=== PATIENT | female | born 1980 | race Caucasian/White ===

== ENCOUNTER 2023-11-27 07:58 | Day surgery (SDC) | payer OTHER, SELFPAY ==
[2023-11-27] VITALS (9 sets, daily range): BP systolic 125–139; BP diastolic 77–99; PULSE 58–89; RESP 16; TEMP 36.6–36.7; O2SAT 95–98; BMI 40.0
[2023-11-27] MEDS: LACTATED RINGERS 1000 ML 1,000 ML 100 ML IV ×2 (07:45→10:18)
--- OUTSIDE RECORDS SUMMARY | 2023-11-27 08:02 | XMS_ITS | Data Portability ---
Author Organization [place] [facility] [place] [facility] Address [address] [place] [address] [address] [place] [address] Care Team Providers Care Nutritional Services Cook Name Role Phone GIA MITCHELL Referring Provider RAUL GRIMALDO Primary Care Provider Assessment Encounter Date Assessment Date Assessment LastModified by Organization Details LastModified Time 08/17/2022 08/17/2022 Today I spent a considerable amount of time discussing the patients past medical and personal history, as well as performing a physical examination all of which is documented in it's entirety in the electronic health record. I reviewed the pathophysiology of the disorder, potential contributing and risk factors as well as treatment options to address their complaints. I did not recommend advanced imaging with CT. Today no imaging was obtained. From a treatment perspective I recommended a self management treatment approach. Treatment begins with home self management designed to rest the muscles of mastication and reduce inflammation in the temporomandibular joints. This includes heat and ice compresses, eating a soft food or pain-free diet, bilateral chewing identifying and decreasing daytime muscle tension and modification of their sleep position. Beyond self management I've recommended rehabilitation with physical therapy and neurology. The goal of treatment is to improve pain, function and focus on long-term self-management strategies. I believe that by following these treatment recommendations there is a good prognosis for reduction of symptoms. History was obtained from the patient. The patient has 5 diagnoses they would like to address. This case is moderate complexity because of multiple diagnoses with chronic symptoms. Data reviewed included: no records were available today. Discussion with pain team members before visit was not necessary. Risk of complications include progressive disease/symptoms. Today time spent may have included a review of past records, history taking, review of diagnoses, contributing factors, treatment plan, diagnostic testing, prognosis, expectations, risks and complications of treatment/no treatment, discussions with other providers and completing documentation was 60 minutes. Not available 08/17/2022 15:55:33 Plan of Treatment Reminders Order Date Submit Date Provider Last Modified By Organization Details Last Modified Time Details Appointments None record ed. Lab None record ed. Referral None record ed. Procedures None record ed. Surgeries None record ed. Imaging None record ed. Medication Orders None record ed. Patient TargetsNo targets recorded. Patient Instructions Encounter Date Encounter Id Patient Instructions Last Modified By Organization Details Last Modified Time 08/17/2022 [id number] 1. instructed in self cares 2. PT evaluation + 3 follow ups (more if needed): muscle relaxation (jaw and neck), instruct in proper jaw mechanics to reduce R TMJ clicking 3. 1/2 hr w/Dr. French in 6 weeks to monitor symptoms. Pt. gets relief from wearing ortho retainers overnight and sometimes during day 4. Dr. Stanford evaluation: migraines with aura 5. request panorex from french instructor. Review with patient at follow up Not available 08/17/2022 15:44:57 Reason for Referral None Reported. Results Created Date Observation Date Name Description Value Unit Range Abnormal Flag LastModifiedBy Organization Detail LastModifiedTime 08/18/19 23 08/17/2022 XR, ortho panto gram No observ ation record ed. Not Available 08/17/2022 18:30:36 Result Notes None recorded. 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 Procedures Surgical History Date Name Laterality Status Provider Name and Address Organization Details Recorded Time 07/24/19 22 Carpal Tunnel Surgery completed Alisa murillo [facility] 08/17/2022 14:36:46 11/05/19 09 Caesarean Section completed Alisa murillo [facility] 08/17/2022 14:36:46 01/07/20 04 Caesarean Section completed Alisa murillo [facility] 08/17/2022 14:36:46 11/02/18 96 [place] Teeth Extraction completed Alisa murillo [facility] 08/17/2022 14:36:46 05/21/18 82 Tonsillectomy completed Alisa murillo [facility] 08/17/2022 14:36:46 Production Department Supervisor Surgery completed Alisa murillo [facility] 08/17/2022 14:36:46 ENT/Sinus Surgery completed Alisa murillo [facility] 08/17/2022 14:36:46 Imaging Results Imaging Date Name Status LastModified by Organization Details LastModified Time 08/17/2022 XR, orthopantogram completed Inform ation not available 08/17/2022 18:30:36 Procedure Notes None recorded. Medical Equipment None Reported. Allergies Allergen ID Allergen Name Allergen Category Reaction Reaction Severity Criticality Documentation Date Start Date Code Code System Note Provider Name and Address Organization Details Recorded Time 16569 adhesive tape environme nt,medica tion hives severe Not available 08/17/2022 Alisa murillo [facility] 14:36:09 [address]253 [employer] Pollen medicatio n respirato ry distress moderate Not available 08/17/2022 Alisa Eagle [facility] [place] [facility] 3 14:36:09 Medications Name Sig Start Date Stop Date Status Note LastModified by Organization Details LastModified Time Singulair 10 mg tablet 1 tablet every day by oral route. active Not Available Not Available No t Available Prozac 40 mg capsule 1 capsule every day by oral route. active Not Available Not Available No t Available Synthroid 125 mcg tablet Take 1 tablet every day by oral route. 08/17 completed Not Available Not Available Not Available dextroamphe tamine-amph etamine 10 mg tablet active Not Available Not Available No t Available gabapentin 400 mg capsule 3 capsules every day by oral route. active Not Available Not Available No t Available phentermine 37.5 mg tablet TAKE 1 AND 1/2 TABLETS BY MOUTH DAILY 08/17 completed Not Available Not Available Not Available acetaminoph en 500 mg tablet 2 tablets twice a day by oral route. active Not Available Not Available No t Available spironolact one 25 mg tablet 08/17 completed Not Available Not Available Not Available Imitrex 50 mg tablet 1 tablet as needed by oral route. active Not Available Not Available No t Available gentamicin 0.3 % eye drops INSTILL 1-2 DROPS INTO AFFECTED EYES EVERY 4 HOURS FOR 7 DAYS DIRECTED 08/17 completed Not Available Not Available Not Available Zaynab 180 mg tablet 1 tablet every day by oral route. 1997 active Not Available Not Available Not Avai lable ursodiol 300 mg capsule TAKE 2 CAPSULES BY MOUTH DAILY 08/17 completed Not Available Not Available Not Available estradiol 2 mg tablet 1 tablet every day by oral route. active Not Available Not Available No t Available doxycycline hyclate 100 mg tablet 08/17 completed Not Available Not Available Not Available Ventolin HFA 90 mcg/actuati on aerosol inhaler 2 puffs as needed by inhalatio n route. active Not Available Not Available No t Available Adderall (10mg) 2 times a day 2020 active Not Available Not Available Not Avai lable Vitamin D3 125 mcg (5,000 unit) tablet 1 tablet every day by oral route. active Not Available Not Available No t Available Paxlovid 300 mg (150 mg x 2)-100 mg tablets in a dose pack TK 2 NIRMATREL VIR TS AND 1 RITONAVIR T TOGETHER PO BID FOR 5 DAYS EVERY DAY UNTIL GONE 08/17 completed Not Available Not Available Not Available Vitals Date Recorded Body height Body mass index (BMI) Body weight Heart rate Systolic blood pressure Diastolic blood pressure Provider Name and Address Organization Details Last Updated DateTime 160.02 cm 39.9 kg/m2 073164. 28 g 67 /min 128 mm[Hg] 93 mm[Hg] Alisa KELLOGG [facility] 14:52:06 Social History Question Answer Notes LastModified by Organizat ion Details LastModified Time Tobacco Smoking Status Current Some Day Smoker Alisa murillo [facility] 08/17/2022 14:36:40 What Is Your Level Of Alcohol Consumption? Occasional [email or web address] Information not available 08/17/2022 What Is Your Level Of Caffeine Consumption? Moderate [email or web address] Information not available 08/17/2022 Are You Currently Employed? Yes [email or web address] Information not available 08/17/2022 What Type Of Diet Are You Following? REGULAR [email or web address] Information not available 08/17/2022 Do You Reside In Or Have You Traveled To An Area Where Ebola Virus Transmission Is Active? No [email or web address] Information not available 08/17/2022 What Is The Highest Grade Or Level Of School You Have Completed Or The Highest Degree You Have Received? 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 2 [email or web address] Information not available 08/17/2022 What Is Your Relationship Status? [email or web address] Information not available 08/17/2022 Do You Feel Stressed (tense, Restless, Nervous, Or Anxious, Or Unable To Sleep At Night)? [id number] [email or web address] Information not available 08/17/2022 Do You Use Any Illicit Or Recreational Drugs? No [email or web address] Information not available 08/17/2022 How Many Years Have You Smoked Tobacco? 25 [email or web address] Information not available 08/17/2022 Sex: Female Functional Status Question Answer Note LastModified by Organizat ion Details LastModified Time What is your exercise level? Occasional [email or web address] Information not available 08/17/2022 Mental Status None recorded. Family History Relationship Description Onset Age of this Age Resolved Age Notes Mother Headache 16 Mother Arthritis 62 Mother Diabetes mellitus 67 Father Heart disease 70 Father Diabetes mellitus 58 Medical History Condition Response Allergies/Hayfever Y Anxiety Disorder Y Muscle, Joint, or Bone Problems Y Post traumatic stress disorder (PTSD) Y Head Trauma/Injury Y Migraines Y Thyroid Problems Y Depression Y Asthma Y Neuropathy Y Headaches Y Gynecological HistoryNo gynecological history recorded. Obstetrics History GPAL:G 0 P 0 0 0 0 Immunizations Vaccine Type Date Status Provider Name and Address Organization Details Recorded Time SARS-COV-2 (COVID-19) vaccine, UNSPECIFIED 02/18/2022 completed [place] He [facility] 08/17/2022 14:36:52 pneumococcal, unspecified formulation 07/21/2022 [place] Gould [facility] 08/17/2022 14:36:52 Influenza, split virus, trivalent, preservative 02/18/2022 completed [place] He [facility] 08/17/2022 14:36:52 Past Encounters Encounter ID Performer Location Encounter Start Date Encounter Closed Date Diagnosis/Indication Diagnosis SNOMED-CT Code [id number] Nora French, REGULO [address] 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 8041103727827 9105 Tension-type headache 39 1647026 Migraine with aura 35973 06 Health Concerns Section Related Observation LastModified by Organization Detai ls LastModified Time None Recorded Concern Status LastModified by Organization Details LastModified Time None Recorded Advance Directives Directive None Recorded Payers Encounter Date Sequence Insurance Name Policy Number Policy Morris Covered Member ID Morris Member ID Guarantor Name 08/17/2022 1 [employer] [id number] Katarzyna Sesay [id number] Katarzyna Sesay Notes Date Note Type Note Provider Name and Address Organization Details Recorded Time 08/17/2022 text/html HPI Notes: Jaw p ain Reported by patient. Onset: started 30 year(s) ago Location: bilateral Quality: aching; shooting; sharp Severity: pain level 2-6/10 Duration and frequency constant; intermittent daily Context: clenching; bruxism; stress; anxiety; chews hard/crunchy/chewy foods; dental work Aggravating/contributi on factors: stress; anxiety; grinding teeth; clenching the teeth; yawning; wide mouth opening; chewing Alleviating Factors: NSAIDs; acetaminophen; ice; relaxation techniques Associated Symptoms: jaw clicking bilateral; jaw popping bilateral Prior Tests: panorex Prior opinion dentist Notes: 08/18/2031: R jaw and TMJ pain, 2-4/10, daily intermittent dull ache, aggravated by stress, chewy foods, wide mouth opening R TMJ popping > L TMJ crunching, popping every time pt. opens past a certain point R ear pain (retro-mandibular pain), 5/10, intermittent brief shooty stabbypains multiple times/day R or L tinnitus x several yrs. R = L temporal headaches, 1-4/10, intermittent dull ache 2-3 times/wk; aggravated by dehydration R < L occipital/frontal/retr o-ocular headaches, 4-7/10, intermittent dull to strong ache 1x every 2 wks; aggravated by dehydration, light preceded by foggy visual aura associated with dizziness She has been to the dentist and the ENT, PCP, and ortho. The dentist and ortho recommended that she comes to see us. Orthodontic treatment ended 1 yr. ago Patient presents today for evaluation of a possible temporomandibular disorder. These symptoms are chronic and began with significant stress and tension. Previous consultation include evaluation with his/her dentist. Symptoms are bilateral and aggravated by clenching and grinding of their teeth. The patient is aware of teeth clenching and grinding. Katarzyna states that this started for her when she was 15. Nora French, RESHMAS [address], [place], [address], [facility] 08/17/2022 15:57:06 OBGyn Episode No OBEpisode recorded.
--- OUTSIDE RECORDS SUMMARY | 2023-11-27 08:02 | XMS_ITS | Clinical Summary ---
Author Organization [email or web address] [facility] Address [place], [place] [address] Care Team Providers Care First Mate Name Role Phone Blanca Radford MD Unavailable [phone] George Chairez MD Primary Care Provider [phone] Allergies Active Allergy Reactions Criticality Noted Date Comments Adhesive Rash 09/09/2012 steristrips left scars Adhesive Tape-Silicones Contact Dermatitis 04/12/2012 Mold Extracts Runny Nose 11/09/2008 dust Penicillins Rash 09/26/2005 Occurred as a child Sertraline Rash 06/25/2012 Bupropion Other - Describe In Comment Field 07/16/2012 Increase suicidal thoughts Medications Medication Sig Dispensed Refills Start Date End Date Status acetaminophen (TYLENOL EXTRA STRENGTH) 500 mg tablet Take 500 mg by mouth every 6 hours if needed. Max acetaminophen dose: 4000mg in 24 hrs. Active fexofenadine (GINA) 180 mg tablet Take 180 mg by mouth. Active SUMAtriptan (IMITREX) 50 mg tablet TAKE 1 TABLET BY MOUTH EVERY 2 HOURS NEEDED FOR MIGRAINE 2 Active Rectiv 0.4 % (w/w) rectal ointment Apply topically to affected area(s). 3 Active albuterol HFA (Ventolin HFA) 90 mcg/actuation inhalerIndications: Moderate persistent asthma without complication Inhale 2 Puffs by mouth every 4 hours if needed for Wheezing. 3 Each 4 3 Active montelukast (SINGULAIR) 10 mg tabletIndications:M oderate persistent asthma without complication Take 1 Tablet (10 mg) by mouth once daily. 90 Tablet 4 3 Active tretinoin (RETIN-A) 0.025 % 0.025 % creamIndications:Ac ne vulgaris Apply topically to affected area(s) at bedtime. 45 g 2 3 Active gabapentin (NEURONTIN) 400 mg capsuleIndications: Pelvic pain,Chronic pain of both ankles TAKE 1 CAPSULE(400 MG) BY MOUTH THREE TIMES DAILY 270 Capsule 2 4 Active FLUoxetine (PROZAC) 20 mg capsuleIndications: Moderate episode of recurrent major depressive disorder (HC) Take 1 Capsule (20 mg) by mouth every morning. 90 Capsule 4 Active tirzepatide, weight loss, (Zepbound) 2.5 mg/0.5 mL penIndications:Clas s 2 severe obesity with body mass index (BMI) of 35 to 39.9 with serious comorbidity (HC),Prediabetes Inject 0.5 mL (2.5 mg) subcutaneous once weekly. 6 mL 4 Active dextroamphetamine-a mphetamine (AdderalL) 10 mg tabletIndications:A ttention deficit hyperactivity disorder (ADHD), predominantly inattentive type Take 1 Tablet (10 mg) by mouth two times daily. 60 Tablet 4 01/25/20 24 Active dextroamphetamine-a mphetamine (AdderalL) 10 mg tabletIndications:A ttention deficit hyperactivity disorder (ADHD), predominantly inattentive type Take 1 Tablet (10 mg) by mouth two times daily. 60 Tablet 4 02/25/20 24 Active levothyroxine (SYNTHROID) 112 mcg tabletIndications:A cquired hypothyroidism Take 1 Tablet (112 mcg) by mouth before breakfast. 90 Tablet 4 Active levothyroxine (SYNTHROID) 125 mcg tabletIndications:A cquired hypothyroidism Take 1 Tablet (125 mcg) by mouth once daily. 90 Tablet 4 3 11/23/19 24 Discontinue d(*Medicati on adjustment) dextroamphetamine-a mphetamine (AdderalL) 10 mg tabletIndications:A ttention deficit hyperactivity disorder (ADHD), predominantly inattentive type Take 1 Tablet (10 mg) by mouth two times daily. 60 Tablet 4 11/26/19 24 dextroamphetamine-a mphetamine (AdderalL) 10 mg tabletIndications:A ttention deficit hyperactivity disorder (ADHD), predominantly inattentive type Take 1 Tablet (10 mg) by mouth two times daily. 60 Tablet 4 11/20/19 24 Discontinue d(Reorder (E-cancel not sent)) Active Problems Problem Noted Date Diagnosed Date PTSD (post-traumatic stress disorder) 03/16/2023 Class 2 severe obesity with body mass index (BMI) of 35 to 39.9 with serious comorbidity 03/16/2023 Acquired hypothyroidism 03/16/2023 Hyperlipidemia LDL goal <130 07/25/2022 Migraine without aura and wi thout status migrainosus, not intractable 07/21/2022 Asthma, moderate persistent 02/13/2022 Estrogen deficiency 02/13/2022 Acne 02/13/2022 Chronic pain of both ankles 02/13/2022 Pelvic pain 02/13/2022 Attention deficit hyperactiv ity disorder (ADHD), predominantly inattentive type 08/17/2020 ACP (advance care planning) 08/09/2017 Overview: Patient has identified Health Care Agent(s): Yes Add Health Care Agents: No Patient has Advance Care Plan Documents (Health Care Directive, POLST): Yes Advance Care Plan Documents: POLST Form Patient has identified Specific Treatment Preferences: Yes How have preferences been verified: POLST Specific Treatment Preferences: a.) Code Status: CPR/Attempt Resuscitation b.) Goals of Treatment: i. Full Treatment: Use intubation, advanced airway interventions, and mechanical ventilation as indicated. Transfer to hospital and/or intensive care unit if indicated. All patients will receive comfort-focused treatments. TREATMENT PLAN: Full treatment including life support measures in the intensive care unit. Cortical cataract of both eyes 05/26/2015 Major depressive disorder, recurrent 06/12/2012 Dyspareunia 09/19/2010 Myopia 12/07/2005 Allergic rhinitis due to pollen 09/26/2005 Resolved Problems Problem Noted Date Diagnosed Date Resolved Date Morbid obesity with BMI of 40.0-44.9, adult 07/21/2022 03/16/2023 Tobacco use disorder 07/21/2022 024 Obesity, Class II, BMI 35-39.9 02/13/2022 07/21/2022 Hypothyroidism (acquired) 02/13/2022 Chronic post-traumatic stress disorder (PTSD) 11/24/19 20 03/16/2023 Closed fracture of right ank le with routine healing 08/16/2017 02/13/2022 Closed fracture of left ankl e with routine healing 08/16/2017 02/13/2022 Fall from height of greater than 3 feet 08/06/2017 02/13/2022 Abnormal vaginal bleeding 03/13/2012 Acute sinusitis, unspecified 01/29/2012 02/13/2022 Family history of ovarian cancer 09/19/2010 02/13/2022 Pelvic pain in female 09/19/20102021 Overview: s/p multiple C-sections, previous conservative surgeries for endometriosis and adhesions. 12/2010 lap supracervical hyst 03/11/2012 still having pelvic pain and bleeding, Dr. Radford has scheduled for surgery in Nov [facility] [place] 10/19/2009 02/13/2022 Major depression, single episode 10/19/2009 06/12/2012 Hypothyroid 06/23/2009 02/13/2022 Supervision of other normal 03/13/2008 11/09/2008 Previous section 03/13/2008 Mild or unspecified pre-eclampsia, antepartum 09/27/19 06 10/20/2005 Overview: 1. Preeclamsia.~2. Asthma~3. Allergy to mold pollen grass, dust. Sees Allergologist. Unspecified asthma(493.90) 09/26/2005 0 02/13/2022 BRONCHITIS - ACUTE 06/07/2005 6 Obesity, unspecified 03/01/2004 022 Encounters Date Type Department Care Team Description 11/20/2023 3:00 PM CDT Preop Visit [facility] [address] [place] [address] George Chairez MD Preoperative Exam 11/20/2023 Travel 09/27/2023 4:00 PM CDT Telemedicine [facility] [address] [place] [address] George Chairez MD Telehealth (No vitals taken ); Medication Management (Follow up ) 09/27/2023 Travel from Last 3 Months Immunizations Name Administration Dates Next Due COVID-19 Vaccine Spikevax (M oderna 50mcg/0.5mL) 12YO+ 4272-4497 Formula PF 03/16/2023 COVID-19 vaccine (Moderna 50mcg/0.5mL) 12YO+ BIVALENT PF, MDV 02/13/2022 COVID-19 vaccine (Pfizer-Bio NTech 30mcg/0.3mL) PF, MDV 03/15/2021,09/08/2020,08/18/2020 Influenza Virus, Unspecified 02/25/2019, 08/02/2016,08/04/2015,2012 Influenza, IIV3 (Age 6-35 mos) 03/08/2017,2015 Influenza, IIV3 (Age >=3 years) 03/01/2021,02/01,03/01/2004 Influenza, IIV4 03/16/2023,,05/04/2020,2018,04/01/2018 Pneumococcal Conj 20-valent (Prevnar 20) 07/21/2022 Pneumococcal Poly,23-Valent (Pneumovax) 02/28/2016 Pneumococcal, Unspecified 07/21/2022 Td (Age >=7 Years) 03/01/2004 Tdap 03/16/2023,12/04/2012 Family History Medical History Relation Name Comments Diabetes Father type II Heart failure Father Cancer Maternal Grandmother ovarian cancer Heart Disease Maternal Uncle 1 DC Other Maternal Uncle 2 melanoma Cancer Mother non-hodgkins ly mphoma Diabetes Mother type II Other Mother melanoma/glauco ma Genetic Other Father is 55, r ecently diagnosed, Type 2 diabetes.~Mother has HTN, Non hodgskin lymphoma, Uterine cancer.~No sibling. Cancer Paternal Aunt uterine cancer Relation Name Status Comments Daughter Alive Father Alive Maternal Grandfather Maternal Grandmother Maternal Uncle 1 Maternal Uncle 2 Mother Alive Other Paternal Aunt Paternal Grandfather Paternal Grandmother Son Alive Social History Tobacco Use Types Packs/Day Years Used Date Smoking Tobacco: Former Cigarettes 0.3 5.5 S tarted: 2019 Smokeless Tobacco: Never Tobacco Cessation:Counseling Given: Not Answered Comments:Occasional Alcohol Use Standard Drinks/Week Comments Not Currently 1 (1 standard drink = 0.6 oz pur e alcohol) socially PHQ-2 Answer Date Recorded PHQ-2 TOTAL SCORE 0 03/16/2023 Social Connections Answer Date Recorded Frequency of Communication with Friends and Fami ly 0 03/16/2023 Financial Resource Strain Answer Date R ecorded Difficulty of Paying Living Expenses 3 03/16/2023 Difficulty of Paying Living Expenses Not on file 03/16/2023 Food Insecurity Answer Date Recorded Worried About Running Out of Food in the Last Ye ar 1 03/16/2023 Transportation Needs Answer Date Record ed Lack of Transportation (Medical) 1 03/16/2023 Housing Stability Answer Date Recorded Unable to Pay for Housing in the Last Year 1 03/16/2023 Sex and Gender Information Value Date Recorded Sex Assigned at Not on file Gender Identity Not on file Sexual Orientation Not on file Obstetrics History Para Term AB IAB SAB Ectopic Multiple Livin g Live Births 2 2 1 2 1 Date Outcome GA Total Labor Labor/2nd/3rd Weight Sex Type Anes PTL Ave A1 A5 Name Clin Para 004 35w 0d 3.37 kg (7 lb 7 oz) M CS-LT ranv Spinal Y Livin g Narayan Comments:Preeclampsia; scheduled with inc. BP and proteinuria. Last Filed Vital Signs Vital Sign Reading Time Taken Comments Blood Pressure 120/80 11/20/2023 2:57 PM CDT Pulse 74 11/20/2023 2:57 PM CDT Temperature 36.8 ??C (98.2 ??F) 06/26/2019 5:08 PM CS T Respiratory Rate 20 06/26/2019 5:08 PM [facility] Oxygen Saturation 98% 07/21/2022 2:05 PM [facility] Inhaled Oxygen Concentration - - Weight 105.7 kg (233 lb) 11/20/2023 2:57 PM CDT Height 162.6 cm (5' 4) 11/20/2023 2:57 PM CDT Body Mass Index 39.99 11/20/2023 2:57 PM CDT Plan of Treatment Health Maintenance Due Date Last Done Comments Influenza for age 9-49 01/20/2024 , 02/13/2022, 03/01/2021, Additional history exists Depression screening for age 12+ 03/16/2024 03/16/20, 02/13/2022 BMI (ht and wt on same day) for age 18+ 11/19/2024 11/20/2023, 03/16/2023, 07/21/2022, Additional history exists Colonoscopy through age 75 01/25/2028 01/24/2023 Tetanus booster 03/16/2033 03/16/2023, 11/18, 03/01/2004 HIV for age 15-65 Completed 03/10/2008 Hepatitis C screening for ag e 18-79 Completed 07/21/2022 Pneumococcal series for age 6-64 Completed 07/21/2022, 07/21/2022, 02/28/2016 COVID-19 vaccine series Completed 03/16/20, 02/13/2022, 03/15/2021, Additional history exists Tdap Completed 03/16/2023, 12/04/2012 Procedures Procedure Name Priority Date/Time Associated Diagnosis Comments T4,FREE Routine 11/20/2023 4:07 PM CDT Acquired hypothyroidism CBC WITH AUTO DIFFERENTIAL Routine 11/20/2023 4:07 PM CDT Pre-op exam BASIC METABOLIC PANEL Routine 11/20/2023 4:07 PM CDT Pre-op exam CBC WITH AUTO DIFFERENTIAL Routine 11/20/2023 4:07 PM CDT Pre-op exam HEMOGLOBIN A1C SCREENING Routine 11/20/2023 4:07 PM CDT Class 2 severe obesity with body mass index (BMI) of 35 to 39.9 with serious comorbidity (HC) TSH WITH REFLEX Routine 11/20/2023 4:07 PM CDT Acquired hypothyroidism SCAN-COLONOSCOPY 01/24/2023 9:00 AM CDT LC HCV ANTIBODY RFX TO QUANT PCR Routine 07/21/2022 3:23 PM [facility] Need for hepatitis C screening test ANTI HIV 1/2 Routine 03/10/2008 1:13 PM CDT Supervision of Other Normal from Last 3 Months or Most Recently Relevant to Health Maintenance Results * CBC WITH AUTO DIFFERENTIAL (11/20/2023 4:07 PM CDT) WHITE BLOOD COUNT 8.0 4.5 - 11.0 thou/cu mm 11/20/2023 4:17 PM CDT [facility] RED BLOOD COUNT 4.45 4.00 - 5.20 mil/cu mm 11/20/2023 4:17 PM CDT [facility] HEMOGLOBIN 13.3 12.0 - 16.0 g/dL 11/20/2023 4:17 PM CDT [facility] HEMATOCRIT 39.5 33.0 - 51.0 % 11/20/2023 4:17 PM CDT [facility] MCV 89 80 - 100 fL 11/20/2023 4:17 PM CDT [facility] MCH 29.9 26.0 - 34.0 pg 11/20/2023 4:17 PM CDT [facility] MCHC 33.7 32.0 - 36.0 g/dL 11/20/2023 4:17 PM CDT [facility] RDW 13.4 11.5 - 15.5 % 11/20/2023 4:17 PM CDT [facility] PLATELET COUNT 290 140 - 440 thou/cu mm 11/20/2023 4:17 PM CDT [facility] MPV 10.4 6.5 - 11.0 fL 11/20/2023 4:17 PM CDT [facility] % NEUT 60.5 % 11/20/2023 4:17 PM CDT [facility] % LYMPH 27.0 % 11/20/2023 4:17 PM CDT [facility] % MONO 8.0 % 11/20/2023 4:17 PM CDT [facility] % EOS 4.0 % 11/20/2023 4:17 PM CDT [facility] % BASO 0.5 % 11/20/2023 4:17 PM CDT [facility] ABSOLUTE NEUTROPHILS 4.8 1.7 - 7.0 thou/cu mm 11/20/2023 4:17 PM CDT [facility] ABSOLUTE LYMPHOCYTES 2.2 0.9 - 2.9 thou/cu mm 11/20/2023 4:17 PM CDT [facility] ABSOLUTE MONOCYTES 0.6 <0.9 thou/cu mm 11/20/2023 4:17 PM CDT [facility] ABSOLUTE EOSINOPHILS 0.3 <0.5 thou/cu mm 11/20/2023 4:17 PM CDT [facility] ABSOLUTE BASOPHILS 0.0 <0.3 thou/cu mm 11/20/2023 4:17 PM CDT [facility] Blood BLOOD SPECIMEN / Unknown Butterfly / Unknown 11/20/2023 4:07 PM CDT 11/20/2023 4:07 PM CDT George Chairez MD HEMATOLOGY Performing Organization Address [facility] Co de Phone Number [facility] [address] [place] [address], * HEMOGLOBIN A1C SCREENING (11/20/2023 4:07 PM CDT) HEMOGLOBIN A1C SCREENING 5.5 <=6.4 % 11/21/2023 6:40 AM CDT [facility] Blood BLOOD SPECIMEN / Unknown Butterfly / Unknown 11/20/2023 4:07 PM CDT 11/20/2023 4:07 PM CDT Narrative [facility] - 11/21/2023 6:40 AM CDT ? (<5.7%) ?Normal ? (5.7% to 6.4%) ? Indicates prediabetes ? (>=6.5%) ? Confirms diabetes Falsely low levels may be seen with: Recent Transfusion, Recent Significant Blood Loss, Hemolytic Diseases, or Falsely elevated levels may be seen with: Untreated Anemias, Splenectomy George Chairez MD CHEMISTRY Performing Organization Address [facility] Co de Phone Number [facility] [address] [place] [address], [place] * (ABNORMAL) TSH WITH REFLEX (11/20/2023 4:07 PM CDT) TSH 0.05(L) 0.27 - 4.20 uIU/mL 11/21/2023 5:20 AM CDT [facility] Blood BLOOD SPECIMEN / Unknown Butterfly / Unknown 11/20/2023 4:07 PM CDT 11/20/2023 4:07 PM CDT Narrative [facility] - 11/21/2023 5:20 AM CDT In Adults, TSH values between 5.00 and 10.00 uIU/ml do not necessarily indicate the presence of Hypothyroidism. Correlation with clinical findings such as presence of goiter and/or Thyroperoxidase (TPO) Antibody may be helpful. For more information please refer to BHARTI 2004; 291: 228-238. Georeg Chairez MD CHEMISTRY Performing Organization Address [facility] Co de Phone Number [facility] [address] [id number], [place] * T4,FREE (11/20/2023 4:07 PM CDT) T4,FREE 1.21 0.93 - 1.70 ng/dL 11/21/2023 6:08 AM CDT [facility] Blood BLOOD SPECIMEN / Unknown Butterfly / Unknown 11/20/2023 4:07 PM CDT 11/20/2023 4:07 PM CDT George Chairez MD CHEMISTRY Performing Organization Address [facility] Co de Phone Number [facility] [address] [address], [place] * (ABNORMAL) BASIC METABOLIC PANEL (11/20/2023 4:07 PM CDT) SODIUM 140 136 - 145 mmol/L 11/21/2023 5:20 AM CDT [facility] POTASSIUM 4.1 3.5 - 5.1 mmol/L 11/21/2023 5:20 AM CDT [facility] CHLORIDE 103 98 - 107 mmol/L 11/21/2023 5:20 AM CDT [facility] CO2,TOTAL 26 22 - 29 mmol/L 11/21/2023 5:20 AM T [facility] ANION GAP 11 5 - 18 11/21/2023 5:20 AM T [facility] GLUCOSE 108(H) 70 - 99 mg/dL 11/21/2023 5:20 AM CDT [facility] CALCIUM 9.3 8.6 - 10.0 mg/dL 11/21/2023 5:20 AM T [facility] BUN 15 6 - 20 mg/dL 11/21/2023 5:20 AM T [facility] CREATININE 0.76 0.50 - 0.90 mg/dL 11/21/2023 5:20 AM T [facility] BUN/CREAT RATIO 20 10 - 20 5:20 AM T [facility] eGFR >90 >90 mL/min/1.7 3m2 11/21/2023 5:20 AM T [facility] Comment:As of 2021, eG FR is calculated by the CKD-EPI creatinine equation without race adjustment. ??eGFR can be influenced by muscle mass, exercise, and diet. ??The reported eGFR is an estimation only and is only applicable if the renal function is stable. Blood BLOOD SPECIMEN / Unknown Butterfly / Unknown 11/20/2023 4:07 PM CDT 11/20/2023 4:07 PM CDT George Chairez MD CHEMISTRY [facility] [address] [place] [address], [place] * SCAN-COLONOSCOPY (01/24/2023 9:00 AM CDT) Narrative Procedure Note Matt Melo MD - 01/24/2023 8:21 AM CDT [facility] [address], [address], [place] [address] Patient Name: Katarzyna Sesay Gender: Female Exam Date: 01/24/2023 Visit Number: [id number] Age: 42 Years Date of : 1980 Attending MD: Matt Melo MD Medical Record#: [id number] Procedure: Colonoscopy Indications: Hematochezia Family history of colon cancer in patient's mother. Age diagnosed:50-59. Referring MD: Referral Self Primary MD: George Chairez MD Medications: Admitting Medications: 0.9% Normal Saline at [facility] Ondansetron Hydrochloride (Zofran) given 4mg by IV Intra Procedure Medications: Patient received monitored anesthesia care. Complications: No immediate complications Procedure: An examination of the heart and lungs was performed and found to be withinacceptable limits. . The patient was therefore deemed a reasonablecandidate for endoscopy and sedation. The risks and benefits of the procedure were explained to the patient.After obtaining informed consent, the patient received monitoredanesthesia care and I passed the scope without difficulty via the rectum to the cecum. The appendiceal orificeand ic valve were identified. The scope was retroflexed during theexamination The quality of the prep was good (Papa/Gat Split). This was a complete examination throughout the entire colon. Findings: The terminal ileum could not be reliably intubated given excessive loopingbut the everted portion of the TI mucosa appeared normal and there was noblood emanating from the opening. Polyp location: transverse colon. Quantity: 1. Size: 2 mm. Polyp shape:flat lesion. Maneuver: polypectomy was performed with a jumbo cold biopsyforceps. Removal: complete. Retrieval: complete. Bleeding: none. Hemorrhoids. Internal and external hemorrhoids without bleeding. Remainder of the exam is normal. Impression: Hematochezia Internal and external hemorrhoids without complication Colorectal polyps Preliminary Plan: Repeat colonoscopy in 5 years Recommendation Comments: Referral to colorectal surgery was placed per your request for symptomaticexternal hemorrhoids Procedure: Upper GI Endoscopy Indications: Dysphagia Abdominal Pain Provider: Matt Melo MD Referring MD: Referral Self Primary MD: George Chairez MD Medications: Admitting Medication: 0.9% Normal Saline at [facility] Ondansetron Hydrochloride (Zofran) given 4mg by IV Intra Procedure Medications: Patient received monitored anesthesia care. Complications: No immediate complications Procedure: An examination of the heart and lungs was performed within acceptablelimits. . The patient was therefore deemed a reasonable candidate forsedation. The risks and benefits were explained to the patient, who appeared tounderstand. After obtaining informed consent, the scope was passed underdirect vision. Throughout the procedure the patient's blood pressure,pulse and oxygen saturations were monitored. The scope was introducedthrough the mouth and advanced to the second portion of duodenum. Findings: Esophagus: Normal esophagus. Maneuver: biopsies were obtained The z-line is 36 centimeters from the incisors. Top of the gastric foldsis 36 centimeters from the incisors. Dilatation of the Esophagus: Instrument: Savary, size: 54 Polish. Impression: The dilation of the esophagus was successful, there was noresistance with no bleeding seen on the post dilation exam. There was nochest or abdominal pain after dilatation. *Esophagus Comments: Biopsies were taken from the mid and distalesophagus given dysphagia prior to empiric dilation. Stomach: Normal stomach. H. Pylori biopsies taken. The diaphragm hiatus is at 36 centimeters from the incisors. Duodenum: Mild duodenitis. Location - bulb. Description - . Biopsy taken in thebulb and D2. Impression: Right upper quadrant pain Esophageal dysphagia Pathology Results: A: DUODENUM, BIOPSY: 1. Non-erosive duodenitis, favor peptic or NSAID injury 2. Normal background duodenum; negative for celiac disease 3. Negative for dysplasia and malignancy B: STOMACH, BIOPSY: 1. Normal gastric antral and body mucosae 2. Negative for Helicobacter C: ESOPHAGUS, DISTAL, BIOPSY: 1. Normal squamous mucosa 2. Negative for reflux changes and eosinophilic esophagitis 3. Negative for columnar mucosa D: ESOPHAGUS, MID, BIOPSY: 1. Normal squamous mucosa 2. Negative for reflux changes and eosinophilic esophagitis 3. Negative for columnar mucosa E: COLON, TRANSVERSE, POLYP: 1. Sessile serrated adenoma 2. Negative for overt dysplasia 3. Per the colonoscopy report: a. Polyp size: 2 mm b. Resection: Complete c. Retrieval: Complete MICROSCOPIC A: Performed B: Performed C: Performed D: Performed E: Performed Electronically signed by: Ham [place] [address] Orders Instruction(s)/Education: Instruction/Education Timeframe Assessment Colon Cancer Prevention K63.5 Colon Polyps K63.5 Dysphagia K63.5 Hemorrhoids K63.5 High Fiber Diet K63.5 Follow-up visit/Referral: Order Comments referred to [facility] Final Plan: Repeat colonoscopy in 5 years. We will attempt to contact you at appropriate intervals via U.S. mail. Wemay not be able to find you or contact you at that time, therefore youshould know that the responsibility for following our recommendation restswith you. If you don't hear from us at the time your procedure is due,please contact our office to schedule an appointment. If your contactinformation should change, please contact our office so that we can updateyour record. Additional Comments: Please see Dr. Javier back in clinic if you have persistent symptoms. Bob send her a copy of your results. _Electronically signed by: Matt Melo MD 01/24/2023 cc: George Chairez MD cc: Teri Javier MD Matt FOSTER OTHER * LC HCV ANTIBODY RFX TO QUANT PCR (07/21/2022 3:23 PM [facility]) HCV Ab Non Reactive Non Reactive 07/25/2022 6:08 AM [facility] Blood BLOOD SPECIMEN / Unknown Venipuncture / Unknown 07/21/2022 3:23 PM [facility] 07/21/2022 3:23 PM [facility] Narrative [facility] ([facility]) - 07/25/2022 6:08 AM [facility] Performed at: ??01 - [facility] [facility] [place] [address], [place] ??[id number] Document Control Clerk: Odilon Maurer MD, Phone: ??[phone] George Chairez MD LABORATORY [facility] TEST[facility] (CET) [address] [place] [address] * ANTI HIV 1/2 (03/10/2008 1:13 PM CDT) Pathologist [facility] ANTI HIV 1/2 Non-reacti ve [facility] Blood specimen (specimen) BLOOD SPECIMEN / Unknown 03/10/2008 1:13 PM CDT 03/10/2008 12:57 PM CDT Saurav Gregory MD SEND OUTS [facility] INTERNAL ZIP [id number] [place] [id number] from Last 3 Months or Most Recently Relevant to Health Maintenance Advance Directives * Full Code (Latest Code Status on File) Date Activated Date Inactivated Comments 04/05/2012 12:29 PM 04/06/2012 5:10 PM * Full Code Date Activated Date Inactivated Comments 04/05/2012 6:49 AM 04/05/2012 12:29 PM Care Teams First Mate Relationship Specialty [place] [address] [place] [address] PCP - General Family Practice 11/14/22 Blanca Radford MD Gynecology Oncology - Gynecologic 03/17/12
[2023-11-27] MEDS: SODIUM CHLORIDE 0.9 % (FLUSH) 10 ML SYRINGE IVF (08:29)
[2023-11-27 08:53] LABS: Hemoglobin* 13.4 gm/dL (12.0-16.0)
--- NOTE | 2023-11-27 09:32 | W.PM.H&PU ---
History & Physical Update History & Physical Update H&P Reviewed and patient assessed: No changes noted H&P Updates: Katarzyna is seen in pre-op for left bartholin gland excision. She is feeling well with no interval changes. Notes cyst still palpates about 2cm in size, tender when sitting or with sex. No acutely increased pain, drainage, fevers/chills. We discussed risks/benefits and alternatives to bartholin gland excision today. Written consent was re-signed. She was able to quit smoking about 3.5 weeks ago! Congratulated her on this effort. Discussed pain control including ibuprofen and Tylenol scheduled for the 1st few days postop, small prescription for oxycodone will be sent as well. Postop restrictions reviewed, where recommend at least 4 weeks of pelvic rest. All questions answered, return precautions reinforced. Plan to proceed with procedure as planned, ancef for surgical prophylaxis.
--- NOTE | 2023-11-27 09:51 | W.PM.GYNPROC ---
Procedure Note Date of procedure: 11/27/23 Will [facility] bill your pro fee for this procedure?: Yes Pre-op diagnosis: Persistent left bartholin gland cyst Post-op diagnosis: Same Procedure: Left bartholin gland and cyst excision Anesthesia: GETA and local Complications: None Surgeon: Jarrett James MD Estimated blood loss (mL): 20 IV fluids (mL): 1,100 Urine Output (mL): 100 Pathology: specimen obtained, sent to pathology Condition: stable Disposition: same day Findings: 2.5cm left vulvar cyst, suspected to arise from bartholin gland Otherwise unremarkable external genital exam Procedure Description: Patient was taken to the operating room with IV running. She was positioned in dorsal lithotomy position with her legs fully supported in Yellofin stirrups. General anesthesia care was administered by patient preference. She was prepped and draped in the usual sterile fashion. Exam under anesthesia was performed for the above-noted findings. I/O catheterization was performed for 100mL urine. The left bartholin gland cyst was readily palpable about 1.5cm in size with a second vulvar cyst was noted to be just adjacent at approximately 3 o'clock. The skin overlying the lesion was injected with total of 7mL of 0.5% marcaine with epinephrine. Incision was made with 15 blade overlying cyst, where skin edges were grasped with allis clamps and retracted laterally. Dissection was carefully performed where I first grasped the superior simple cyst body. This was readily mobile and was gradually dissected off the underlying tissue. The entirely of the cyst was removed intact, with small oozing of simple fluid when grasped. Attention was then turned to the second vulvar cyst at site of bartholin gland. This too was grasped with pick ups and circumferentially dissected off underlying tissue with gentle sharp and blunt dissection. The Bartholin gland cyst was noted to have a more dense wall, likely secondary to chronic inflammation and prior surgery. It was removed in its entirety without difficulty. Electrocautery was utilized as needed for hemostasis throughout cyst excisions. Comprehensive external genital and vaginal exam was then performed, ensuring all cystic tissue was removed. Additional hemostasis was then addressed with electrocautery. The deep vulvar tissue was closed with several deep, interrupted stitches with 3-0 vicryl. Excellent hemostasis was noted. A second deep layer with several interrupted 3-0 vicryl stitches was performed to close space and reapproximate the skin. The skin was finally closed with simple interrupted sutures with 3-0 vicryl. Excellent tension free tissue approximation was noted. Excellent hemostasis was noted. Patient tolerated procedure well. She was taken to recovery area in stable condition. Vulvar cyst specimens sent for pathologic evaluation together. Surgical debrief completed.
[2023-11-27] MEDS: CEFAZOLIN 2 GM INJ IVP (10:03)
[2023-11-27] MEDS: BUPIVACAINE 0.5 %/EPI 1:200K 30 ML INJECTION (10:50)
--- NOTE | 2023-11-27 11:14 | W.ANESCHARGE ---
Anesthesia Charges Start Date/Time Anesthesia Start Date: 11/27/23 Anesthesia Start Time: 09:55 Stop Date/Time Anesthesia Stop Date: 11/27/23 Anesthesia Stop Time: 11:13
--- NOTE | 2023-11-27 11:16 | W.ANESCHARGE ---
Anesthesia Charges Start Date/Time Anesthesia Start Date: 11/27/23 Anesthesia Start Time: 09:55 Stop Date/Time Anesthesia Stop Date: 11/27/23 Anesthesia Stop Time: 11:13
== END 2023-11-27 12:36 | disposition home or self-care (01) ==
PROVIDERS: PCP Family Medicine; Visit Provider Obstetrics & Gynecology
PROC: (CPT 56740; principal; 2023-11-27 09:30)
DX: N75.0 Cyst of Bartholin's gland (principal); N90.7 Vulvar cyst
CPT/HCPCS: 56740; 11423; 00940; 36415; 85018; 86850; 86900; 86901; 88305; J0690; J1100; J1885; J2250; J2405; J2704; J3010; J3490; J7120